=== PATIENT | male | born 1970 | race Caucasian/White ===

== ENCOUNTER 2022-06-23 17:51 | Emergency (ER) | payer BC ==
[~2022-06-23] VITALS: Ht 175.3 cm; Wt 113.6 kg
[2022-06-23 18:30] LABS: BASO % 0.3 % (0.0-2.0); EOS # 0.1 K/mm3 (0.0-0.7); EOS % 1.4 % (0.0-4.0); GRAN % 57.4 % (42.2-75.2); LYMPH # 2.4 K/mm3 (1.2-3.4); LYMPH % 27.2 % (20.0-51.0); MEAN CELL VOLUME 112 fl (80.0-100.0); MEAN CORPUSCULAR HGB CONC 34 g/dl (33.0-37.0); MEAN PLATELET VOLUME 10.3 fl (7.4-10.4); MONO # 1.1 K/mm3 (0.1-0.6); MONO % 12.8 % (1.7-9.3); PLATELET COUNT 129 K/mm3 (130-400); RED BLOOD COUNT 1.61 M/mm3 (4.20-5.60); REDCELL DISTRIBUTION WIDTH-CV 14.9 % (11.5-14.5)
[2022-06-23 18:31] LABS: HEMATOCRIT 18.1 % (42.0-52.0); HEMOGLOBIN 6.1 g/dl (13.5-18.0); MEAN CORPUSCULAR HEMOGLOBIN 38 pg (27-31)
[2022-06-23 18:39] LABS: INR 2.2 (0.8-3.0); PROTHROMBIN TIME 25.2 SECONDS (9.7-12.8)
[2022-06-23 18:46] LABS: ACETAMINOPHEN < 1.0 ug/mL (10-30); ALANINE AMINOTRANSFERASE 61 U/L (0-55); ALBUMIN 1.8 gm/dL (3.5-5.0); ALKALINE PHOSPHATASE 82 U/L (40-150); ANION GAP 10 mmol/L (7-16); AST,SGOT 138 U/L (5-34); BILIRUBIN,TOTAL 14.8 mg/dL (0.2-1.2); BLOOD UREA NITROGEN 13 mg/dL (8-26); CALCIUM 8.3 mg/dL (8.4-10.2); CARBON DIOXIDE 17 mmol/L (22-29); CHLORIDE 97 mmol/L (98-107); CREATININE, serum 0.76 mg/dL (0.72-1.25); GLUCOSE 106 mg/dL (70-99); LIPASE 120 U/L (8-78); POTASSIUM 4.2 mmol/L (3.5-4.5); SODIUM 124 mmol/L (136-145); TOTAL PROTEIN 7.8 gm/dL (6.2-8.1)
[2022-06-23 18:57] LABS: BILIRUBIN,DIRECT 8.7 mg/dL (0.0-0.5)
[2022-06-23 19:20] LABS: COLLECTION METHOD CLEAN CATCH
[2022-06-23 19:28] LABS: MUCOUS Present (NOT PRESENT); PH 5 (5-8); SQUAMOUS EPITHELIAL 0-2 /hpf (0-10); URINE APPEARANCE Clear (CLEAR/HAZY); URINE BACTERIA Rare /hpf (NONE SEEN); URINE BLOOD Negative (NEGATIVE); URINE COLOR Amber (YELLOW); URINE GLUCOSE Negative (NEGATIVE); URINE KETONE Negative (NEGATIVE); URINE NITRATE Negative (NEGATIVE); URINE PROTEIN(semi-quant) Negative (NEGATIVE); URINE RBC None Seen /hpf (0-2); URINE UROBILINOGEN >=4.0 (NEGATIVE)
[2022-06-23 20:08] VITALS: BP 148/74; PULSE 90; TEMP 98.2
[2022-06-23 20:23] VITALS: BP 146/86; PULSE 91; TEMP 98.4
[2022-06-23 20:38] VITALS: BP 139/95; PULSE 90; TEMP 98.5
[2022-06-23 21:01] VITALS: BP 146/94; PULSE 82; TEMP 98.4
[2022-06-23 21:31] VITALS: BP 146/68; PULSE 90; TEMP 98.5
[2022-06-23 22:22] VITALS: TEMP 98.5
[2022-06-24 00:05] VITALS: BP 140/78; PULSE 76
[2022-06-24 17:05] LABS: GAMMA GLUTAMYL TRANSPEPTIDASE 53 U/L (12-64)
== END 2022-06-24 00:05 | disposition short-term general hospital (02) ==
LOC: COL.ER 17:51
PROVIDERS: Emergency Medicine
DX: U07.1 COVID-19 (principal); K72.00 Acute and subacute hepatic failure without coma; D64.9 Anemia, unspecified; E87.1 Hypo-osmolality and hyponatremia; D69.6 Thrombocytopenia, unspecified
CPT/HCPCS: P9016; Q9967

== ENCOUNTER 2024-06-22 23:46 | Inpatient (IN) | payer OTHER, BC ==
[~2024-06-22] VITALS: Ht 180.3 cm; Wt 120.3 kg
[~2024-06-22 23:46] MED LIST: ALDACTONE 100M100 MG PO; FERRO-TIME325 MG PO; LACTULOSE10 GM/153 PO; LASIX 20MG TABL20 MG PO; PROBIOTIC ACID1 EAC3 PO; VALIUM 5MG T5 MG/TAB PO; VITAMIN A10k PO; VITAMIN D 50,1.25 MG PO; XIFAXAN550 MG PO
[2024-06-23] VITALS (8 sets, daily range): BP systolic 144–154; BP diastolic 90–109; PULSE 81–105; TEMP 98–99
[2024-06-23 00:20] LABS: HEMATOCRIT 37.2 % (42.0-52.0); HEMOGLOBIN 12.7 g/dl (13.5-18.0); MEAN CELL VOLUME 88 fl (80.0-100.0); MEAN CORPUSCULAR HEMOGLOBIN 30 pg (27-31); MEAN CORPUSCULAR HGB CONC 34 g/dl (33.0-37.0); MEAN PLATELET VOLUME 9.3 fl (7.4-10.4); PLATELET COUNT 197 K/mm3 (130-400); RED BLOOD COUNT 4.24 M/mm3 (4.20-5.60)
[2024-06-23 00:21] LABS: INR 1.4 (0.8-3.0); PROTHROMBIN TIME 15.5 SECONDS (9.7-12.8)
[2024-06-23 00:22] LABS: COLLECTION METHOD CLEAN CATCH
[2024-06-23 00:30] LABS: ALANINE AMINOTRANSFERASE 23 U/L (0-55); ALBUMIN 2.8 g/dL (3.5-5.0); ALKALINE PHOSPHATASE 149 U/L (40-150); ANION GAP 11 mmol/L (7-16); AST,SGOT 38 U/L (5-34); BILIRUBIN,TOTAL 2.1 mg/dL (0.2-1.2); BLOOD UREA NITROGEN 11 mg/dL (8-26); CALCIUM 9.3 mg/dL (8.4-10.2); CHLORIDE 101 mEq/L (98-107); CREATININE, serum 0.81 mg/dL (0.72-1.25); GLUCOSE 101 mg/dL (70-99); POTASSIUM 4.5 mEq/L (3.5-4.5); SODIUM 129 mEq/L (136-145); TOTAL PROTEIN 6.3 g/dl (6.2-8.1)
[2024-06-23 00:37] LABS: TROPONIN-I < 0.010 ng/mL (0.00-0.033)
[2024-06-23] MEDS ORDERED: WATER FOR IRRIGATION STERILE RC ONE (00:45)
[2024-06-23] MEDS ORDERED: LACTULOSE 200 GM RC ONE (00:45)
[2024-06-23 00:55] LABS: URINE APPEARANCE CLEAR (CLEAR/HAZY); URINE BLOOD NEGATIVE (NEGATIVE); URINE COLOR Dark Yellow (YELLOW); URINE GLUCOSE NEGATIVE (NEGATIVE); URINE KETONE 1+ (NEGATIVE); URINE NITRATE NEGATIVE (NEGATIVE); URINE PROTEIN(semi-quant) NEGATIVE (NEGATIVE)
[2024-06-23 00:56] LABS: BAND 13 % (0-10); EOSINOPHIL 1 % (0-4); LYMPHOCYTE 28 % (20.0-51.0); NEUTROPHILS 44 % (42.0-75.2)
[2024-06-23 00:57] LABS: ANISOCYTOSIS 1+; PLATELET ESTIMATE NORMAL (NORMAL)
[2024-06-23] MEDS ORDERED: NS 1,000 ML IV SCH (01:45)
[2024-06-23] MEDS ORDERED: Lactulose Oral Soln 10 GM/15 ML CUP PO ONE ×3 (04:45→08:00)
[2024-06-23 05:40] LABS: ARTERIAL BLD GAS O2 SATURATION 97.3 % (92-100); ARTERIAL BLD GAS TCO2 CT 17.9; ARTERIAL BLOOD GAS BASE EXCESS -3.1 (-2-2); ARTERIAL BLOOD GAS HCO3 17.2 meq/L (22-26); ARTERIAL BLOOD GAS PO2 103.5 mmHg (80-100); ARTERIAL BLOOD GAS pH 7.55 (7.35-7.45)
[2024-06-23 05:41] LABS: ARTERIAL BLOOD GAS PCO2 20.4 mmHg (35-45)
[2024-06-23 08:56] LABS: BASO % 0.6 % (0.0-2.0); EOS # 0.2 K/mm3 (0.0-0.7); EOS % 2.4 % (0.0-4.0); GRAN # 3.9 K/mm3 (1.4-6.5); HEMATOCRIT 37.1 % (42.0-52.0); HEMOGLOBIN 12.8 g/dl (13.5-18.0); LYMPH # 1.7 K/mm3 (1.2-3.4); LYMPH % 24.4 % (20.0-51.0); MEAN CELL VOLUME 87 fl (80.0-100.0); MEAN CORPUSCULAR HEMOGLOBIN 30 pg (27-31); MEAN CORPUSCULAR HGB CONC 35 g/dl (33.0-37.0); MEAN PLATELET VOLUME 9.5 fl (7.4-10.4); MONO # 1.2 K/mm3 (0.1-0.6); MONO % 17.3 % (1.7-9.3); PLATELET COUNT 172 K/mm3 (130-400); RED BLOOD COUNT 4.27 M/mm3 (4.20-5.60); REDCELL DISTRIBUTION WIDTH-CV 16.9 % (11.5-14.5)
[2024-06-23] MEDS ORDERED: Pantoprazole 40 MG in NS 10 ML IV SCH (09:00)
[2024-06-23 09:17] LABS: ALBUMIN 2.9 g/dL (3.5-5.0); BILIRUBIN,TOTAL 2.3 mg/dL (0.2-1.2); CALCIUM 9.5 mg/dL (8.4-10.2); CREATININE, serum 0.9 mg/dL (0.72-1.25); TOTAL PROTEIN 6.4 g/dl (6.2-8.1)
[2024-06-23] MEDS ORDERED: Lactulose Oral Soln 10 GM/15 ML CUP PO SCH (14:00)
--- NOTE | 2024-06-23 14:37 | NUR ---
merchandise worker attended clinical rounding and was informed pt was somnolent due to altered mental status and did not take his lactulose, which lead to this. SW called pt's , Kaleigh [phone] to discuss intake information and medication non-compliance. She reports her and pt live together in [place]. He sees Dr. Ann for PCP needs and obtains medications from [facility] with no difficulties. She confirmed his insurance as [employer] and [employer]. She reports they both work. states pt is independent with ADLS and uses a CPAP for DME. He does not have a DPOA-HC and she is agreeable to be NOK. SW provided information after speaking with Dr. Parul Pena, that pt's liver disease could be something that Medicare follows for eligibilty criteria and suggests speaking with them about this. verbalized understanding and SW advised this would open up more resource options. reports pt was recently in the hospital and they later had a follow-up appointment and they were not provided enough education on lactulose and the information surrounding the need. state pt "doesn't like the side effects" and that is why he does not take it. She states pt needs a "boothe kick in his butt." SW advised them to look into Medicare because at this time, he would not qualify for services when working and having two insurances. SW did discuss private duty, but she reports pt is functionally independent and just needs to be told to take his medication. SW advised she understood this. was very open to all information and wanting to assist pt. Discharge Plan: home
--- NOTE | 2024-06-23 19:45 | NUR ---
Patient arrived to room 310 at approximately 0810 this morning. Intake and med rec completed at that time with spouse answering all questions. Patient has been somnolent since arrival to room. Patient does open his eyes on command with voice stimulis. Patient states "fuck" with repositioning, otherwise does not answer question or speak. 2 point soft wrist restraints in place. Small skin tear noted on RFA from patient's identification braclet-skin is bruised in that area and thin. Braclet moved to left wrist and bandaid placed. Allowed patient to be without the restraints while was at bedside for 2 hours this evening. Restraints replaced when spouse left bedside. Bathing cares provided this morning. Oral cares provided every 2 hours throughout shift. Early this afternoon, during restraint check patient was found with emesis on his chin and neck. HOB remained at 30 degrees up to this point and then was elevated to a 45 degree angle. Cares provided. Patient without any bowel elimination until this evening during shift change- which was a large loose stool. IVF infuse as ordered to RW without s/s IV related complications.
[2024-06-23] MEDS ORDERED: Ondansetron 4 MG/2 ML VIAL IV PRN (23:15)
[2024-06-24] VITALS (12 sets, daily range): BP systolic 134–153; BP diastolic 79–90; PULSE 77–91; TEMP 97.8–98.2
[2024-06-24 07:24] LABS: BASO # 0.1 K/mm3 (0.0-0.2); BASO % 0.5 % (0.0-2.0); EOS # 0.2 K/mm3 (0.0-0.7); EOS % 1.5 % (0.0-4.0); GRAN # 5.5 K/mm3 (1.4-6.5); GRAN % 56.9 % (42.2-75.2); HEMOGLOBIN 12.4 g/dl (13.5-18.0); LYMPH # 2.5 K/mm3 (1.2-3.4); LYMPH % 25.3 % (20.0-51.0); MEAN CELL VOLUME 88 fl (80.0-100.0); MEAN CORPUSCULAR HEMOGLOBIN 30 pg (27-31); MEAN CORPUSCULAR HGB CONC 34 g/dl (33.0-37.0); MEAN PLATELET VOLUME 9.2 fl (7.4-10.4); MONO # 1.5 K/mm3 (0.1-0.6); MONO % 15.5 % (1.7-9.3); PLATELET COUNT 192 K/mm3 (130-400); RED BLOOD COUNT 4.14 M/mm3 (4.20-5.60); REDCELL DISTRIBUTION WIDTH-CV 17.2 % (11.5-14.5)
[2024-06-24 07:33] LABS: ALBUMIN 2.7 g/dL (3.5-5.0); CALCIUM 8.7 mg/dL (8.4-10.2); CREATININE, serum 0.97 mg/dL (0.72-1.25); POTASSIUM 3.7 mEq/L (3.5-4.5); TOTAL PROTEIN 6.1 g/dl (6.2-8.1)
[2024-06-24 07:34] LABS: HEMATOCRIT 36.5 % (42.0-52.0)
--- NOTE | 2024-06-24 11:43 | NUR ---
Assessment completed. Patient drowsy this morning but easily arousable to verbal stimuli. Patient is awake at this time able to follow commonds and respond appropriately. Oriented to name and . States "February" everytime he is asked date or location. Restraints removed at shift change since patient's mentation improved and patient cooperative. NG tube to right nares, clamped. HOB elevated to 45 degrees. Zofran administered prior to lactulose administration to NG tube. Pt had another bout of emesis through the night. Denies nausea or pain at this time. Fall precautions in place.
--- NOTE | 2024-06-24 12:35 | NUR ---
Data: Patient declined spiritual care visit offered during Stage Settings Painter rounds. Assessment: None. Patient declined. Plan of Care: Chaplains will remain available as needed/requested while Patient is admitted to this hospital.
--- NOTE | 2024-06-24 13:25 | NUR ---
Patient tolerated showering. Now sitting in chair visiting with family. Cardizem infusing as ordered. Digoxin and Coreg administered.
--- NOTE | 2024-06-24 14:31 | NUR ---
Ambulated x1 assist approximately 100 feet to hallway and back to room. Now sitting up in chair. Patient was able to get to the side of bed by himself but was very slow and difficult for him. Gait was slow and shuffled. Dr. Pena notified. Order rec'd. NG and mathis d/c'd. Pt tolerated well. Patient's conversation appropriate and patient is pleasant and cooperative. at bedside assisting patietn with ordering meal.
--- NOTE | 2024-06-24 15:36 | NUR ---
Patient ambulated in hallway approximately 250 feet x1 assist, using cane. Resting HR 60-70's. After ambulation HR 96. HR after 5-10 minutes of rest returned to 60-70's. Dr. Mcclure notified.
--- NOTE | 2024-06-24 18:36 | NUR ---
Patient continues to sit up in chair. Conversation continues to be appropriate and continues to walk to the bathroom when needed. Gait and motions still slow. at bedside. Patient denies pain or needs at this time.
[2024-06-25] VITALS (12 sets, daily range): BP systolic 118–153; BP diastolic 75–89; PULSE 73–106; TEMP 97.5–98.6
--- NOTE | 2024-06-25 04:32 | NUR ---
pt sitting in recliner at start of shift with at bedside, pt alert and oriented. Slowly regaining fine motor skills, able to ambulate with standby assistance. Will be seen by PT later today. IV patent, denies pain at this time, assessed and all HS meds administered. Assisted to bed, fall precautions in place.
[2024-06-25 06:47] LABS: BASO % 0.6 % (0.0-2.0); EOS # 0.3 K/mm3 (0.0-0.7); EOS % 4.8 % (0.0-4.0); GRAN # 3.9 K/mm3 (1.4-6.5); GRAN % 54.3 % (42.2-75.2); HEMOGLOBIN 11.6 g/dl (13.5-18.0); LYMPH % 28.1 % (20.0-51.0); MEAN CELL VOLUME 90 fl (80.0-100.0); MEAN CORPUSCULAR HEMOGLOBIN 30 pg (27-31); MEAN CORPUSCULAR HGB CONC 34 g/dl (33.0-37.0); MEAN PLATELET VOLUME 9.4 fl (7.4-10.4); MONO # 0.8 K/mm3 (0.1-0.6); MONO % 11.6 % (1.7-9.3); PLATELET COUNT 144 K/mm3 (130-400); RED BLOOD COUNT 3.84 M/mm3 (4.20-5.60); REDCELL DISTRIBUTION WIDTH-CV 16.8 % (11.5-14.5)
[2024-06-25 06:51] LABS: HEMATOCRIT 34.6 % (42.0-52.0)
[2024-06-25 07:03] LABS: ALBUMIN 2.6 g/dL (3.5-5.0); BILIRUBIN,TOTAL 1.8 mg/dL (0.2-1.2); CALCIUM 8.4 mg/dL (8.4-10.2); CREATININE, serum 0.78 mg/dL (0.72-1.25); POTASSIUM 3.5 mEq/L (3.5-4.5); TOTAL PROTEIN 5.7 g/dl (6.2-8.1)
--- NOTE | 2024-06-25 11:39 | NUR ---
KEYMODULE ASSEMBLY MACHINE TENDER was notifed by Dr. Pena that Pt needs DME and home health referrals. Pt called spouse, Kaleigh [phone] to discuss. Pt recommended a front wheeled walker and KEYMODULE ASSEMBLY MACHINE TENDER sent a DME referral to [facility]. Spouse nor Pt had a preference for [facility]. KEYMODULE ASSEMBLY MACHINE TENDER printed off Medicare.gov list and gave to Pt. Pt and spouse will evaluate together later today and inform SW of decision. KEYMODULE ASSEMBLY MACHINE TENDER will continue to follow.
--- NOTE | 2024-06-25 12:31 | NUR ---
Assessment completed earlier today. Pt walked in the hallway with PT - he tolerated this well - states "I did squats with the physical therapist". His gait is slow. He is alert and oriented x4, however there is delayed processing. He is currently sitting in the chair and complains of no pain. Call light is within reach. He has no other complaints at this time.
[2024-06-25] MEDS ORDERED: rifAXIMin 550 MG TAB PO SCH (13:11)
[2024-06-25] MEDS ORDERED: Furosemide 40 MG TAB PO SCH (13:12)
[2024-06-25] MEDS ORDERED: Spironolactone 25 MG TAB PO SCH (13:12)
--- NOTE | 2024-06-25 14:09 | NUR ---
SW met with patient and spouse to obtain their choice for a home health agency. Spouse consutled with patient during this time confirming patient choice of [facility] home health. SW faxed referral to [facility] home health, and called with voice mail left to obtain information regarding arrival of referral. JACE will follow up with home health agency to continue to coordinate services.
--- NOTE | 2024-06-25 15:04 | NUR ---
Patient's is in the room with patient, she had multiple concerns about diet and new medications. Nursing staff provided the patient and his family with education. She requests a dietary consult- dietary consult placed. Patient sitting in chair alert and oriented, with present. All needs met at this time. Call light within reach.
[2024-06-25] MEDS ORDERED: Lactulose Oral Soln 10 GM/15 ML CUP PO SCH (16:30)
--- NOTE | 2024-06-25 18:11 | NUR ---
Pt sat up in chair most of the day. Cognition seemed to improve as the day progressed - movement and mentation noted to be less delayed. at bedside for most of the afternoon - she leaves to go home at this time. Pt has skin tear on right forearm - wiped with aloe wipes and no-rinse cleanser. Skin tear seems to be progressively healing. Call light within reach, no other needs at this time.
--- NOTE | 2024-06-25 19:14 | NUR ---
Bedside report given, patient was alert and oriented, sitting up in chair, denies needs at this time.
--- NOTE | 2024-06-25 19:21 | NUR ---
Initial shift assessment done- denies pain/SOB, alert/oriented x4, states hes ready to go home, feeling better, States he has had 2 stools today so far. States he didnt get much sleep last night so ready for some good sleep!, no requests, on Fluid restriction-pt aware.
[2024-06-26] VITALS (13 sets, daily range): BP systolic 126–146; BP diastolic 78–90; PULSE 73–83; TEMP 97.7–98.5
[2024-06-26 06:59] LABS: BASO # 0.1 K/mm3 (0.0-0.2); BASO % 0.4 % (0.0-2.0); EOS # 0.3 K/mm3 (0.0-0.7); EOS % 2.5 % (0.0-4.0); GRAN # 7.1 K/mm3 (1.4-6.5); GRAN % 62.8 % (42.2-75.2); HEMOGLOBIN 11.5 g/dl (13.5-18.0); LYMPH # 2.6 K/mm3 (1.2-3.4); MEAN CELL VOLUME 91 fl (80.0-100.0); MEAN CORPUSCULAR HEMOGLOBIN 30 pg (27-31); MEAN CORPUSCULAR HGB CONC 33 g/dl (33.0-37.0); MEAN PLATELET VOLUME 9.6 fl (7.4-10.4); MONO # 1.2 K/mm3 (0.1-0.6); MONO % 10.7 % (1.7-9.3); PLATELET COUNT 166 K/mm3 (130-400); RED BLOOD COUNT 3.81 M/mm3 (4.20-5.60); REDCELL DISTRIBUTION WIDTH-CV 16.6 % (11.5-14.5)
[2024-06-26 07:07] LABS: HEMATOCRIT 34.5 % (42.0-52.0)
[2024-06-26 07:21] LABS: ALBUMIN 2.6 g/dL (3.5-5.0); BILIRUBIN,TOTAL 1.7 mg/dL (0.2-1.2); CALCIUM 8.3 mg/dL (8.4-10.2); CREATININE, serum 0.81 mg/dL (0.72-1.25); POTASSIUM 3.7 mEq/L (3.5-4.5); TOTAL PROTEIN 5.8 g/dl (6.2-8.1)
--- NOTE | 2024-06-26 08:30 | NUR ---
PATIENT RESTING IN BED. ALERT AND ORIENTED. SHIFT ASSSESSMENT COMPLETE. PATIENT AMBULATED WELL WITH WALKER TO THE BATHROOM. DENIES PAIN OR DISCOMFORT. PATIENT STATES HE IS HOPING TO GO HOME TODAY. CALL LIGHT WITHIN REACH.
--- NOTE | 2024-06-26 12:20 | NUR ---
CAME TO HEALTH TECH PATIENT. PRETTY UPSET THAT PATIENT IS UNABLE TO LEAVE. THIS RN EDUCATED AND PATIENT ABOUT INCREASING AMMONIA LEVELS. PATIENT UNABLE TO RECALL THE YEAR AT THIS TIME. DENIES HAVING A BOWEL MOVEMENT YET TODAY. CALL LIGHT WITHIN REACH. WILL MONITOR
--- NOTE | 2024-06-26 13:34 | NUR ---
bridge worker apprentice notes pt was reccomended for SNF vs HH, but upon further review by this SW; pt will not likely qualify. JACE reviewed progress notes which state pt does not want inpatient services. JACE spoke with [employer] who agreed that pt is walking 300ft and will likely not qualify, even if he was interested. JACE spoke with Roman at [facility] who states pt likely won't qualify also as he is not homebound (works), is walking 300ft, and his insurance might not approve. She reports their clinical team is still reviewing, but pt likely will not be able to qualify for the above reasons. JACE spoke with pt who was alert and oriented at that time. He was informed on [facility] likely not being able to be a resource due to his mobility and not being homebound. Pt does report he intends to return to work in a week. SW discussed his medication non-compliance and issues surrounding this. He reports they were just unclear on the discharge insutrctions previosuly provided surrounding the medication. He reports they now have gotten the proper education. He questioned his ammonia levels. JACE advised he would need to discuss with the RN or Dr. JACE discussed the need for a FWW and he was agreeable to one as he is more "stable" and to satisfy his . He did not have a specific DME company in mind and was agreeable to [facility]. JACE advised she will work on this. JACE called pt's , Kaleigh to inform her on the above. JACE advised HH is more than likely not an option, but the insurance will further review. She questions how is she supposed to know the excerises to do with pt. JACE suggested she arrive to the hospital and speak with RN/therapist regarding this. JACE suggest OP PT as an option since he is not home bound. She did not address this. She was agreeable to the FWW being ordered. JACE informed JESSICA Romero of the above conversations. Discharge Plan: home with
[2024-06-26] MEDS ORDERED: Lactulose Oral Soln 10 GM/15 ML CUP PO SCH (17:00)
--- NOTE | 2024-06-26 20:45 | NUR ---
Initial shift assessment done- states feeling full, states feels constipated, states she would like him to have some Miralax to help with constipation-- was up to bathroom and had just 2 very small hard pebble size stools, Catherine ECHEVARRIA called and she gave the order for Miralax so will give with night meds tonight. Alert/Oriented at this time-- Up in chair but ready now to get back to bed- Bed alarm on. Call light in reach.
[2024-06-26] MEDS ORDERED: Polyethylene Glycol 3350 17 GM PDS PO SCH (21:00)
[2024-06-27] VITALS (11 sets, daily range): BP systolic 118–131; BP diastolic 76–84; PULSE 71–81; TEMP 97.5–98.3
--- NOTE | 2024-06-27 05:34 | NUR ---
Slept well last night-- did wake up around 4 am to go to bathroom, assisted up, just voided, so no stools last since shift change last night , did give the Miralax around 9 pm .
--- NOTE | 2024-06-27 07:45 | NUR ---
THIS RN RECEIVED CALL FROM PATIENT'S ABOUT CONCERN THAT PATIENT "FEELS TOO FULL TO DRINK." THIS RN WENT TO CHECK ON PATIENT. PATIENT IS ALERT AND ORIENTED X4 AT THIS TIME. BOWEL SOUNDS AUDIBLE WITHOUT AUSCULTATION. PATIENT STATES HE DOES FEEL LIKE HE'S GETTING TO THE POINT TO WHERE HE DOESN'T WANT TO EAT OR DRINK. THIS RN RECOMMENDED GETTING UP FOR A WALK SOON. PATIENT AGREES. PATIENT STILL HAS NOT HAD BOWEL MOVEMENT. JAYA LOPEZ NOTIFIED.
[2024-06-27 08:40] LABS: BASO % 0.5 % (0.0-2.0); EOS # 0.3 K/mm3 (0.0-0.7); EOS % 3.8 % (0.0-4.0); GRAN # 4.8 K/mm3 (1.4-6.5); GRAN % 58.5 % (42.2-75.2); HEMOGLOBIN 11.7 g/dl (13.5-18.0); LYMPH # 1.9 K/mm3 (1.2-3.4); LYMPH % 23.6 % (20.0-51.0); MEAN CELL VOLUME 89 fl (80.0-100.0); MEAN CORPUSCULAR HEMOGLOBIN 30 pg (27-31); MEAN CORPUSCULAR HGB CONC 34 g/dl (33.0-37.0); MEAN PLATELET VOLUME 9.4 fl (7.4-10.4); MONO % 12.7 % (1.7-9.3); PLATELET COUNT 173 K/mm3 (130-400); RED BLOOD COUNT 3.93 M/mm3 (4.20-5.60); REDCELL DISTRIBUTION WIDTH-CV 15.9 % (11.5-14.5)
[2024-06-27 08:45] LABS: HEMATOCRIT 34.8 % (42.0-52.0)
[2024-06-27 08:55] LABS: ALBUMIN 2.6 g/dL (3.5-5.0); BILIRUBIN,TOTAL 1.6 mg/dL (0.2-1.2); CALCIUM 8.4 mg/dL (8.4-10.2); CREATININE, serum 0.79 mg/dL (0.72-1.25); TOTAL PROTEIN 6.2 g/dl (6.2-8.1)
--- NOTE | 2024-06-27 11:09 | NUR ---
precast concrete ironworker spoke with JESSICA Romero who reports pt has no had a bowel movement, is getting a CT scan of his stomach, and his ammonia is increased. She thinks pt could discharge later today vs tomorrow. SW spoke with [facility] who has the FWW order pending until discharge known. Discharge Plan: home
--- NOTE | 2024-06-27 11:15 | NUR ---
PATIENT DOWN TO CT AT 1112. ALERT AND ORIENTED.
[2024-06-27] MEDS ORDERED: Iohexol 300 - 100 ML VIAL IV ONE (11:18)
[2024-06-27] MEDS ORDERED: NS 100 ML IV SCH (11:18)
--- NOTE | 2024-06-27 11:30 | NUR ---
PATIENT BACK TO MEDICAL FLOOR FROM CT AT 1124. ALERT AND ORIENTED.
--- NOTE | 2024-06-27 18:53 | NUR ---
PATIENT RESTING SITTING IN BEDSIDE RECLINER WITH TV ON WITH FAMILY AT BEDSIDE WITH NO ACUTE DISTRES NOTED. PATIENT ON ROOM AIR. INT TO RIGHT WRIST INTACT WITH NO COMPLICATIONS NOTED. BEDSIDE REPORT COMPLETED WITH RAISA AT THIS TIME. PATIENT'S ENQUIRED ABOUT SURGERY CONSULT. INFORMED THAT SURGEON WAS STILL IN SURGERY AND WOULD COME ONCE DONE. PATIENT AND DENY ANY OTHER NEEDS. RECLINER LOCKED AND CALL LIGHT WITHIN REACH. CHAIR ALARM ON.
[2024-06-27] MEDS ORDERED: NS 1,000 ML IV SCH (19:00)
[2024-06-27] MEDS ORDERED: WATER FOR IRRIGATION STERILE RC ONE (19:30)
[2024-06-27] MEDS ORDERED: LACTULOSE 200 GM RC ONE (19:30)
--- NOTE | 2024-06-27 21:45 | NUR ---
PATIENT SITTING IN BEDSIDE RECLINER WITH TV ON WITH NO FAMILY PRESENT WITH NO ACUTE DISTRESS NOTED. INT TO RIGHT WRIST INTACT WITH NO COMPLICATIONS NOTED. ASSESSMENT AND MEDICATION ADMINISTRATION COMPLETED AT THIS TIME. PATIENT REQUESTED TO USE THE BATHROOM PRIOR TO NG TUBE PLACEMENT. PATIENT ASSISTED TO BATHROOM WITH STAND BY ASSIST. ANNIKA BARROS. PATIENT VOIDED AND WASHED HANDS. PATIENT ASSISTED TO BED AND SAT ON EDGE OF BED. PATIENT C/O NAUSEA. IV ZOFRAN GIVEN PER MD ORDER. SEE EMAR. NS STARTED. PATIENT TOLERATED WELL. PATIENT DENIES ANY NEEDS. BED IN LOW POSITION WITH WHEELS LOCKED WITH RAILS UP X2 AND CALL LIGHT WITHIN REACH. BED ALARM ON.
--- NOTE | 2024-06-27 21:55 | NUR ---
16 FR NG TUBE PLACED IN LEFT NARES TO 65 CM. PLACEMENT CONFIRMED WITH AIR AND GASTRIC JUICE SEEN IN TUBE. CXR ORDERED AND RADIOLOGY CALLED AT 7607. PATIENT TOLERATED WELL. NG TUBE SECURED WITH NOSE TAPE AND TO PATIENT GOWN WITH LARGE CLIP.
--- NOTE | 2024-06-27 22:08 | NUR ---
RADIOLOGY IN TO DO CXR AT THIS TIME. PATIENT ASSISTED TO SIT UP IN BED.
--- NOTE | 2024-06-27 22:35 | NUR ---
LACTALOSE ENEMA GIVEN AT THIS TIME. PATIENT TOELRATED WELL. NO STOOL NOTED EXCEPT FOR TIP OF ENEMA TUBE. PATIENT ADVISED TO HOLD LONG POSSIBLE AND CALL TO USE BATHROOM. PATIENT VERBALIZED UNDERSTANDING. BED IN LOW POSITION WITH WHEELS LOCKED WITH RAILS UP X2 AND CALL LIGHT WITHIN REACH. BED ALARM ON.
--- NOTE | 2024-06-27 22:45 | NUR ---
[facility]CCO [facility] HOSPITAL[facility] CALLED FOR PATIENT PLACEMENT OF NG TUBE. AFTER REVIEWING XRAY ROCCO CALLED PRIMARY NURSE BACK AT [phone] AND GAVE TELEPHONE ORDER TO USE NG TUBE. PATIENT CONNECTED TO LOW INTERMITTEN SUCTION PER ORDER.
[2024-06-28] VITALS (12 sets, daily range): BP systolic 112–131; BP diastolic 67–82; PULSE 69–75; TEMP 97.4–97.9
[2024-06-28 06:29] LABS: BASO % 0.4 % (0.0-2.0); EOS # 0.3 K/mm3 (0.0-0.7); EOS % 3.7 % (0.0-4.0); GRAN # 3.6 K/mm3 (1.4-6.5); GRAN % 49.4 % (42.2-75.2); HEMATOCRIT 35.6 % (42.0-52.0); HEMOGLOBIN 12.1 g/dl (13.5-18.0); LYMPH # 2.3 K/mm3 (1.2-3.4); LYMPH % 31.6 % (20.0-51.0); MEAN CELL VOLUME 89 fl (80.0-100.0); MEAN CORPUSCULAR HEMOGLOBIN 30 pg (27-31); MEAN CORPUSCULAR HGB CONC 34 g/dl (33.0-37.0); MEAN PLATELET VOLUME 9.3 fl (7.4-10.4); MONO % 14.1 % (1.7-9.3); PLATELET COUNT 173 K/mm3 (130-400); RED BLOOD COUNT 4.02 M/mm3 (4.20-5.60); REDCELL DISTRIBUTION WIDTH-CV 15.9 % (11.5-14.5)
[2024-06-28 06:35] LABS: ALBUMIN 2.6 g/dL (3.5-5.0); BILIRUBIN,TOTAL 1.8 mg/dL (0.2-1.2); CALCIUM 8.5 mg/dL (8.4-10.2); CREATININE, serum 0.8 mg/dL (0.72-1.25); POTASSIUM 3.9 mEq/L (3.5-4.5); TOTAL PROTEIN 5.9 g/dl (6.2-8.1)
--- NOTE | 2024-06-28 08:00 | NUR ---
PATIENT IS A&O X4. VSS. NO C/O N/V OR PAIN. PATIENT IS NPO. ACTIVITY IS SBA X1. IV FLUIDS RUNNING. PERIPHERAL IV IN R WRIST IS INTACT AND PATENT. NG TUBE IS ON LOW INTERMITTENT SUCTION AND IN PLACE. PATIENT ON FALL PRECAUTIONS. SHIFT ASSESSMENT DONE. MORNING MEDS ADMINISTERED. NO FURTHER NEEDS AT THIS TIME. CALL LIGHT WITHIN REACH.
[2024-06-28 09:28] LABS: INR 1.5 (0.8-3.0); PROTHROMBIN TIME 16.6 SECONDS (9.7-12.8)
[2024-06-28] MEDS ORDERED: WATER FOR IRRIGATION STERILE RC ONE (11:00)
[2024-06-28] MEDS ORDERED: LACTULOSE 200 GM RC ONE (11:00)
--- NOTE | 2024-06-28 13:32 | NUR ---
LACTULOSE ENEMA ADMINISTERED TO PATIENT AT 1215. PATIENT ABLE TO HOLD IN FOR THE FULL HOUR AND EXPELLED THE FLUID. NO BOWEL MOVEMENT YET. PATIENT TOLERATED ENEMA WELL.
--- NOTE | 2024-06-28 18:39 | NUR ---
ADMINISTERED MORE OF LACTULOSE ENEMA. PATIENT TOLERATED WELL.
--- NOTE | 2024-06-28 21:22 | NUR ---
patient lying in bed, alert and oriented x4. ambulated x1 assist to bedside commode, moderate amount of some soft and loose mucousy brown BM passed. pt back in bed. BLE with nonpitting edema and general purplish discoloration noted, pt refused pillow placement under BLE at this time. NG tube intact measured at 65 cm to low intermittent suction, minimal to no additional output reported throughout the day. pt denies nausea. IV in RW is patent, site is CDI with NS running at 75 ml/hr. pt has no further needs, questions or concerns at this time. fall precautions in place, call light within reach. will continue to monitor.
[2024-06-29] VITALS (12 sets, daily range): BP systolic 112–143; BP diastolic 69–91; PULSE 69–76; TEMP 97.3–98.2
--- NOTE | 2024-06-29 00:56 | NUR ---
REPORT RECIEVED FROM VIKAS FLORES AT THIS TIME. PATIENT CARE ASSUMED.
[2024-06-29 06:32] LABS: BASO % 0.6 % (0.0-2.0); EOS # 0.2 K/mm3 (0.0-0.7); EOS % 3.3 % (0.0-4.0); GRAN # 2.7 K/mm3 (1.4-6.5); GRAN % 49.3 % (42.2-75.2); HEMOGLOBIN 11.5 g/dl (13.5-18.0); LYMPH # 1.6 K/mm3 (1.2-3.4); LYMPH % 30.1 % (20.0-51.0); MEAN CELL VOLUME 89 fl (80.0-100.0); MEAN CORPUSCULAR HEMOGLOBIN 30 pg (27-31); MEAN CORPUSCULAR HGB CONC 34 g/dl (33.0-37.0); MEAN PLATELET VOLUME 9.3 fl (7.4-10.4); MONO # 0.9 K/mm3 (0.1-0.6); PLATELET COUNT 154 K/mm3 (130-400); RED BLOOD COUNT 3.82 M/mm3 (4.20-5.60); REDCELL DISTRIBUTION WIDTH-CV 16.1 % (11.5-14.5)
[2024-06-29 06:47] LABS: ALBUMIN 2.4 g/dL (3.5-5.0); BILIRUBIN,TOTAL 1.8 mg/dL (0.2-1.2); CALCIUM 8.3 mg/dL (8.4-10.2); CREATININE, serum 0.76 mg/dL (0.72-1.25); POTASSIUM 4.3 mEq/L (3.5-4.5); TOTAL PROTEIN 5.5 g/dl (6.2-8.1)
--- NOTE | 2024-06-29 07:38 | NUR ---
PATIENT A&O X4. NO C/O PAIN OR N/V. PATIENT IS SBA X1. IV IN RFA IS INTACT AND PATENT. NG TUBE ON LOW INTERMITTENT SUCTION. PATIENT IS CURRENTLY NPO. VSS. LABS REVIEWED. SHIFT ASSESSMENT COMPLETE AND MORNING MEDICATION ADMINISTERED. NO FURTHER NEEDS AT THIS TIME. CALL LIGHT WITHIN REACH.
[2024-06-29] MEDS ORDERED: Iohexol 300 - 100 ML VIAL IV ONE (15:47)
[2024-06-29] MEDS ORDERED: NS 100 ML IV SCH (15:47)
--- NOTE | 2024-06-29 18:44 | NUR ---
PATIENT SITTING UP IN BEDSIDE RECLINER WITH NG TUBE CLAMPED WITH TV ON WITH AT BEDSIDE WITH NO ACUTE DISTRESS NOTED. PATIENT ON ROOM AIR. INT TO RIGHT WRIST INTACT WITH NO COMPLICATIONS NOTED. NS STARTED BACK UP BY USAMA. BEDSIDE REPORT COMPLETED AT THIS TIME. PATIENT REQUESTED UNDERWEAR. BRIEF GIVEN. ALL NEEDS MET. RECLINER LOCKED AND CALL LIGHT WITHIN REACH.
--- NOTE | 2024-06-29 19:16 | NUR ---
Dr. Pena notified that patient is now moving bowels. He has had two large bowel movement since 1699. New orders received.
--- NOTE | 2024-06-29 19:28 | NUR ---
DR. SARAH CALLED PRIMARY NURSE. WANTED NG TUBE REMOVED AND TO START CLEAR LIQUIDS. NOTIFIED THAT DAY SHIFT NURSE HAD CALLED DR. ANDERSON AND OBTAINED ORDER FOR CLEAR LIQUIDS AND TO CLAMP NG TUBE. DR. SARAH STATED TO FOLLOW THOSE ORDERS AND WAS OKAY.
--- NOTE | 2024-06-29 19:42 | NUR ---
PATIENT SITTING ON EDGE OF BED, AFTER RETURNING FROM BATHROOM, WITH TV ON WITH NO FAMILY PRESENT WITH NO ACUTE DISTRESS NOTED. PATIENT HAD LARGE LOOSE BROWN BOWEL MOVEMENT. NS INGUSING INTO RIGHT WRIST WITH NO COMPLICATIONS NOTED. NS STOPPED PER MD ORDER AND IV FLUSHED. 16 FR NG TUBE INTACT TO LEFT NARES, PATENT, AND CLAMPED. ASSESSMENT COMPLETED AT THIS TIME. PATIENT TOLERATED WELL. NEW SOCKS GIVEN AND PLACED ON FEET. PATIENT REQUESTED CHICKEN BROTH AND CUP OF ICE. BOTH GIVEN. PATIENT DENIES ANY OTHER NEEDS. BED IN LOW POSITION WITH WHEELS LOCKED WITH RAILS UP X2 AND CALL LIGHT WITHIN REACH.
[2024-06-30] VITALS: BP_SYST 130
[2024-06-30 04:30] VITALS: BP 147/81; PULSE 75; TEMP 97.7
[2024-06-30 07:15] VITALS: BP 121/76; PULSE 78; TEMP 98.1
--- NOTE | 2024-06-30 07:45 | NUR ---
Patient sitting up in the recliner. A&Ox4. VSS. IV CDI. NG tube clamped, intact. Denies pain and discomfort. Reports passing gas and tolerating PO intake. Call light within reach
[2024-06-30 10:14] LABS: BASO % 0.6 % (0.0-2.0); EOS # 0.2 K/mm3 (0.0-0.7); EOS % 2.3 % (0.0-4.0); GRAN # 3.4 K/mm3 (1.4-6.5); GRAN % 51.4 % (42.2-75.2); HEMOGLOBIN 12.3 g/dl (13.5-18.0); LYMPH # 1.9 K/mm3 (1.2-3.4); LYMPH % 28.9 % (20.0-51.0); MEAN CELL VOLUME 89 fl (80.0-100.0); MEAN CORPUSCULAR HEMOGLOBIN 30 pg (27-31); MEAN CORPUSCULAR HGB CONC 33 g/dl (33.0-37.0); MEAN PLATELET VOLUME 9.1 fl (7.4-10.4); PLATELET COUNT 182 K/mm3 (130-400); RED BLOOD COUNT 4.14 M/mm3 (4.20-5.60); REDCELL DISTRIBUTION WIDTH-CV 16.1 % (11.5-14.5)
[2024-06-30 10:24] LABS: HEMATOCRIT 36.8 % (42.0-52.0)
[2024-06-30 10:26] LABS: ALBUMIN 2.8 g/dL (3.5-5.0); BILIRUBIN,TOTAL 2.1 mg/dL (0.2-1.2); CALCIUM 8.7 mg/dL (8.4-10.2); CREATININE, serum 0.88 mg/dL (0.72-1.25); POTASSIUM 3.9 mEq/L (3.5-4.5); TOTAL PROTEIN 6.4 g/dl (6.2-8.1)
--- NOTE | 2024-06-30 11:21 | NUR ---
child care worker was informed pt is waiting to eat, then could discharge if tolerated. SW informed [facility] the [facility] that was ordered. Discharge Plan: home
[2024-06-30 11:31] VITALS: BP 142/88; PULSE 78; TEMP 97.6
[2024-06-30] MEDS ORDERED: ENULOSE10 GM/15 M PO (12:20)
--- NOTE | 2024-06-30 15:07 | NUR ---
SW emailed updated notes to [facility] who later brought up pt's FWW.
[2024-06-30 16:04] VITALS: BP 131/83; PULSE 81; TEMP 97.7
--- NOTE | 2024-06-30 16:38 | NUR ---
NG TUBE REMOVED. PATIENT TOLERATED WELL. IV REMOVED, TIP INTACT. GAUZE AND COBAN APPLIED. DISCHARGE PAPERWORK REVIEWED WITH THE PATIENT AND . PATIENT AMBULATED INDEPENDENTLY TO AWAITING VEHICLE. NO FURTHER NEEDS EXPRESSED
== END 2024-06-30 16:38 | disposition home or self-care (01) | DRG 442 ==
LOC: COL.ER 23:46 → MEDICAL 06-23 01:40
PROVIDERS: Nurse Practitioner; Nurse Practitioner Family; Physician Assistant; ADMIT Internal Medicine
DX: K76.82 Hepatic encephalopathy (principal); E72.20 Disorder of urea cycle metabolism, unspecified; K56.600 Partial intestinal obstruction, unspecified as to cause; E87.1 Hypo-osmolality and hyponatremia; E87.20 Acidosis, unspecified; K76.6 Portal hypertension; K72.10 Chronic hepatic failure without coma; E86.0 Dehydration; E83.52 Hypercalcemia; E86.1 Hypovolemia; K70.31 Alcoholic cirrhosis of liver with ascites; E66.9 Obesity, unspecified; E78.5 Hyperlipidemia, unspecified; I10 Essential (primary) hypertension; K63.89 Other specified diseases of intestine; I86.4 Gastric varices; K52.9 Noninfective gastroenteritis and colitis, unspecified; D64.9 Anemia, unspecified; Z79.899 Other long term (current) drug therapy; Z91.148 Patient's other noncompliance with medication regimen for other reason; Z91.018 Allergy to other foods; Z23 Encounter for immunization; Z68.37 Body mass index [BMI] 37.0-37.9, adult
CPT/HCPCS: J2405; J2470; J7030; Q9967

== ENCOUNTER 2024-07-04 07:16 | Day surgery (SDC) | payer OTHER, BC ==
[~2024-07-04] VITALS: Ht 180.3 cm; Wt 115.6 kg
[~2024-07-04 07:16] MED LIST changes: +ENULOSE10 GM/15 M PO; +NS 1,000 ML IV SCH; +Ondansetron 4 MG/2 ML VIAL IV PRN
--- NOTE | 2024-07-04 08:10 | NUR ---
0747: Called Dr. Nagel, pt had 1 minimal mostly solid BM yesterday between [id number]; has been inpatient all last week, prep went well, denies abdominal distention though endorses slight cramping; Dr. Nagel ordered a STAT KUB 0750: Called XR, order placed in [facility] 0808: KUB complete on stretcher in [facility]; per Dr. Nagel, to proceed with procedure, both EGD and Colon
--- NOTE | 2024-07-04 08:13 | NUR ---
See initial note regarding STAT KUB; pt arrived with , prep went well though pt is not moving bowels; VSS and RR even and unlabored; reviewed meds/allergies/pharm/history and updated; to sign consents and place IV.
[2024-07-04 08:14] VITALS: BP 112/87; PULSE 73; TEMP 97.4
[2024-07-04] MEDS ORDERED: Lidocaine PF 2% (20 MG/ML) 5 ML VIAL ONE (09:09)
[2024-07-04 09:55] VITALS: BP 111/68; PULSE 66; TEMP 98
[2024-07-04 10:10] VITALS: BP 99/68; PULSE 64
[2024-07-04 10:25] VITALS: BP 111/60; PULSE 73
== END 2024-07-04 11:25 | disposition home or self-care (01) ==
LOC: SDCO 07:16
DX: C18.4 Malignant neoplasm of transverse colon (principal); D12.5 Benign neoplasm of sigmoid colon; K59.00 Constipation, unspecified; G47.33 Obstructive sleep apnea (adult) (pediatric); K70.30 Alcoholic cirrhosis of liver without ascites; I10 Essential (primary) hypertension; Z79.899 Other long term (current) drug therapy
CPT/HCPCS: J2704; J7030

== ENCOUNTER 2024-07-05 20:40 | Emergency (ER) | payer OTHER, BC ==
[~2024-07-05] VITALS: Ht 180.3 cm; Wt 118.2 kg
[~2024-07-05 20:40] MED LIST changes: -NS 1,000 ML IV SCH; -Ondansetron 4 MG/2 ML VIAL IV PRN
[2024-07-05 22:13] LABS: BASO # 0.1 K/mm3 (0.0-0.2); BASO % 0.6 % (0.0-2.0); EOS # 0.2 K/mm3 (0.0-0.7); EOS % 2.4 % (0.0-4.0); GRAN # 3.6 K/mm3 (1.4-6.5); GRAN % 45.4 % (42.2-75.2); HEMATOCRIT 38.4 % (42.0-52.0); HEMOGLOBIN 12.8 g/dl (13.5-18.0); LYMPH # 2.9 K/mm3 (1.2-3.4); LYMPH % 36.6 % (20.0-51.0); MEAN CELL VOLUME 89 fl (80.0-100.0); MEAN CORPUSCULAR HEMOGLOBIN 30 pg (27-31); MEAN CORPUSCULAR HGB CONC 33 g/dl (33.0-37.0); MEAN PLATELET VOLUME 9.2 fl (7.4-10.4); MONO # 1.2 K/mm3 (0.1-0.6); MONO % 14.7 % (1.7-9.3); PLATELET COUNT 223 K/mm3 (130-400); RED BLOOD COUNT 4.33 M/mm3 (4.20-5.60); REDCELL DISTRIBUTION WIDTH-CV 15.6 % (11.5-14.5)
[2024-07-05] MEDS ORDERED: Lactulose Oral Soln 10 GM/15 ML CUP PO ONE (22:15)
[2024-07-05 22:33] LABS: ALBUMIN 3.1 g/dL (3.5-5.0); BILIRUBIN,TOTAL 2.9 mg/dL (0.2-1.2); CALCIUM 9.7 mg/dL (8.4-10.2); CREATININE, serum 0.97 mg/dL (0.72-1.25); POTASSIUM 3.8 mEq/L (3.5-4.5); TOTAL PROTEIN 6.8 g/dl (6.2-8.1)
[2024-07-06 01:16] VITALS: BP 128/81; PULSE 74; TEMP 98.4
== END 2024-07-06 01:20 | disposition home or self-care (01) ==
LOC: COL.ER 20:40
PROVIDERS: Nurse Practitioner
DX: E72.20 Disorder of urea cycle metabolism, unspecified (principal)

== ENCOUNTER → 2024-07-19 | Outpatient (CLI) | payer OTHER, BC ==
[2024-07-19 14:21] LABS: MEAN CELL VOLUME 88 fl (80.0-100.0); MEAN CORPUSCULAR HGB CONC 34 g/dl (33.0-37.0); PLATELET COUNT 171 K/mm3 (130-400); RED BLOOD COUNT 2.61 M/mm3 (4.20-5.60); REDCELL DISTRIBUTION WIDTH-CV 15.6 % (11.5-14.5)
[2024-07-19 14:25] LABS: HEMATOCRIT 22.9 % (42.0-52.0); HEMOGLOBIN 7.8 g/dl (13.5-18.0); MEAN CORPUSCULAR HEMOGLOBIN 30 pg (27-31)
[2024-07-19 14:28] LABS: INR 1.8 (0.8-3.0); PROTHROMBIN TIME 18.8 SECONDS (9.7-12.8)
[2024-07-19 14:43] LABS: ALBUMIN 2.3 g/dL (3.5-5.0); ALKALINE PHOSPHATASE 84 U/L (40-150); ANION GAP 7 mmol/L (7-16); AST,SGOT 25 U/L (5-34); BILIRUBIN,TOTAL 1.2 mg/dL (0.2-1.2); BLOOD UREA NITROGEN 51 mg/dL (8-26); CHLORIDE 104 mEq/L (98-107); CREATININE, serum 2.09 mg/dL (0.72-1.25); GLUCOSE 96 mg/dL (70-99); POTASSIUM 4.5 mEq/L (3.5-4.5); SODIUM 129 mEq/L (136-145); TOTAL PROTEIN 5.2 g/dl (6.2-8.1)
[2024-07-19 14:53] LABS: ALANINE AMINOTRANSFERASE < 6 U/L (0-55)
== END ==
LOC: COL.LAB 13:39
PROVIDERS: Surgery
DX: C18.9 Malignant neoplasm of colon, unspecified (principal); K70.30 Alcoholic cirrhosis of liver without ascites; Z90.49 Acquired absence of other specified parts of digestive tract